=== PATIENT | female | born 1930 | race Caucasian/White ===

== ENCOUNTER 2016-11-21 11:15 | Inpatient (IN) | payer MEDICARE, OTHER ==
[~2016-11-21] VITALS: Ht 157.5 cm; Wt 63.6 kg
[~2016-11-21 11:15] MED LIST: ACET-2158 GTB; DOCU-144 PO; FLUD0.1T10 PO; LINA290C PO; PANT40TA3 PO; TEMA30CA6 PO; [UNRECOGNIZED DRUG - CODE] NASAL; [UNRECOGNIZED DRUG - CODE] PO
--- NOTE | 2016-11-21 12:24 | RADRPT ---
PROCEDURE: US bilateral lower extremity veins. CLINICAL INDICATION: Bilateral leg pain and swelling. History of inferior vena cava filter. TECHNIQUE: Multiple longitudinal and transverse images of the bilateral lower extremity veins were obtained with jimenez scale and color Doppler imaging. The common femoral vein, femoral vein, and popl iteal vein were evaluated. 2D grayscale measurements with compression sonography, color Doppler, and pulsed Doppler with augmentation. COMPARISON: No prior studies are available for comparison. FINDINGS: The bilateral common femoral, femoral and popliteal veins are normally compressible throughout. Col or flow demonstrates normal filling of the vessels. Normal waveforms are visualized and there is no rmal response to augmentation. IMPRESSION: 1. No evidence of deep vein thrombosis involving either lower extremity. RPTAT: QQ .Charbel Fowler MD, MD Date Time Electronically viewed and signed by .Charbel Fowler MD, on 11/21/2016 12:24 .R/
[2016-11-21 12:41] LABS: ADD SCAN DIFF NO
--- NOTE | 2016-11-21 12:45 | ERA ---
ER Documentation Chief Complaint Date/Time DATE: 11/21/16 TIME: 12:43 Chief Complaint BROUGHT IN VIA EMS DUE TO SHORTNESS OF BREATH FROM MD OFFICE HPI This is a very pleasant 86-year-old Armenian-speaking female with a known history of hypertension ulx-vifjdyy-hrjgzurcm diabetes mellitus that presents from her primary care physician's office after she was evaluated for shortness of breath. The patient has had a productive cough with whitish sputum for the past 7 days. She has not taken any antibiotics. She indicates that this shortness of breath is worse with exertion. She has had swelling of her bilateral lower extremities and mild calf tenderness. She has had a previous IVC filter placed prophylactically after the patient had a right hip replacement several years prior to arrival. She has no chest pain or pressure that radiates to the neck arm back or jaw. She has had a decrease in appetite and generalized myalgias but denies any abdominal pain hemoptysis or hematemesis. She has had no recent travel. 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 Medications Home Meds Reported Medications Calcitonin [place]* (Miacalcin*) 200 Units/Ml Soln, 1 SPRAY NASAL DAILY, VIAL 11/21/16 Temazepam* (Temazepam*) 15 Mg Capsule, 15 MG PO HS Y for INSOMNIA, CAP 11/21/16 Pantoprazole* (Pantoprazole*) 40 Mg Tablet.dr, 40 MG PO AC BREAKFAST, TAB 11/21/16 Ygcytx-Ywowscpd-Gtqoxsn* (Zenpep DR* 5,000) 5,000 L-17,000-27,000 Unit Capsule.dr, 1 CAP PO WITH MEALS, CAP 11/21/16 Hyoscyamine Sulfate* (Hyoscyamine Sulfate*) 0.125 Mg Tab.subl, 0.125 MG SL Q8 Y for PAIN, TAB 11/21/16 Fludrocortisone* (Fludrocortisone*) 0.1 Mg Tablet, 0.1 MG PO DAILY, TAB 11/21/16 Erythromycin* (Erythromycin* Ophthalmic) 1 Applic Oint, 1 APPLIC BOTH EYES BID, #1 TUB 11/21/16 Docusate Sodium* (Docusate Sodium*) 100 Mg Capsule, 100 MG PO BID Y for CONSTIPATION, #60 CAP 11/21/16 Diclofenac Sodium* (Voltaren* Gel) 1% -100 Gm Gel, 1 GM TOP BID Y for PAIN, #1 TUB 11/21/16 Cyclosporine (RESTASIS) 1 Each [place], 1 DROP BOTH EYES Q12, #1 BOX 11/21/16 Albuterol Sulfate* (Albuterol Sulfate* Neb) 0.083%-3 Ml Neb, 2.5 MG NEB Q8 Y for WHEEZING AND SOB, #30 VIAL 11/21/16 Acetaminophen* (Acetaminophen*) 650 Mg Tablet, 650 MG PO Q8 Y for PAIN AND OR ELEVATED TEMP, #30 TAB 11/21/16 Discontinued Reported Medications Calcitonin [place] (Miacalcin Nasal [place]) 1 [place], 1 SPRAY NASAL DAILY, SPRAY TO ALTERNATING NOSTRIL 01/12/15 Linaclotide (LINZESS) 290 Mcg Capsule, 290 MCG PO 01/12/15 Docusate Sodium* (Colace*) 100 Mg Capsule, 100 MG PO BID, CAP 01/12/15 Acetaminophen (TYLENOL 325 MG TAB) 325 Mg Tab, 325 MG GTB, TAB 01/12/15 Temazepam* (Restoril*) 30 Mg Capsule, 30 MG PO HS Y for INSOMNIA, CAP 01/12/15 Tjufzw-Qqrbydl-Eyjnbtin* (Pancrelipase* DR) 5,000 L-17,000-27,000 Unit Capsule.dr, 2 CAP PO WITH MEALS, CAP 01/12/15 Fludrocortisone* (Fludrocortisone*) 0.1 Mg Tablet, 0.1 MG PO DAILY, TAB 01/12/15 Pantoprazole* (Protonix*) 40 Mg Tablet.dr, 40 MG PO DAILY, TAB 01/12/15 Allergies Allergies: Coded Allergies: No Known Allergy (Verified , 01/12/15) PMhx/Soc History of Surgery: Yes (LAMI L4-L5, LT. TKR, RT. THR, THORACOTOMY R) Anesthesia Reaction: Yes Hx Neurological Disorder: No (USES WALKER DUE TO LOWER EXT WEAKNESS) Hx Respiratory Disorders: Yes Hx Cardiac Disorders: Yes (H/O DVT POST SURGERY;) Hx Psychiatric Problems: No Hx Miscellaneous Medical Probl: No Hx Alcohol Use: No Hx Substance Use: No Hx Tobacco Use: No Smoking Status: Never smoker Physical Exam Vitals Vital Signs Date Time Temp Pulse Resp B/P Pulse Ox O2 Delivery O2 Flow Rate FiO2 11/21/16 12:22 74 26 136/95 95 Nasal Cannula 2.0 11/21/16 12:02 Nasal Cannula 2.0 11/21/16 12:02 Nasal Cannula 2 11/21/16 11:27 98.5 90 18 140/84 95 Physical Exam Constitutional:Well-developed. Well-nourished. HEENT:Normocephalic. Atraumatic.Pupils were equal round reactive to light. Moist mucous membranes.No tonsillar exudates. Neck: No nuchal rigidity. No lymphadenopathy. No posterior cervical spine tenderness or step-offs. Respiratory: Tachypneic. Rhonchi heard bilaterally. Productive cough. Not using accessory muscles of respiration. Cardiovascular: Regular rate regular rhythm. Systolic murmurs. No rubs were appreciated.S1, S2 normal. Distal pulses are palpable 2+ bilaterally. GI: Abdomen was soft. Nontender. Non Distended. No pulsatile abdominal masses or bruits. No rebound. No guarding. Bowel sounds were present and normal. Muscle skeletal: Full range of motion of both the upper and lower extremities bilaterally.Normal muscle tone.No assymetrical calf tenderness or swelling. Skin: No petechia, no purpura. No lesions on the palms or the soles of the feet. No maculopapular rash. 1+ pitting edema the bilateral lower extremities NEURO: Patient was alert, awake, orientated x3.No facial droop. Gait observed and normal with no ataxia.Speech had regular rate and rhythm. No focal neurological deficits. Result Diagram: 11/21/16 1220 11/21/16 1220 Results 24 hrs Laboratory Tests Test 11/21/16 12:20 11/21/16 13:20 White Blood Count 5.110^3/ul Red Blood Count 3.7110^6/ul Hemoglobin 12.1g/dl Hematocrit 38.5% Mean Corpuscular Volume 103.8fl Mean Corpuscular Hemoglobin 32.6pg Mean Corpuscular Hemoglobin Concent 31.4g/dl Red Cell Distribution Width 12.8% Platelet Count 04175^3/UL Mean Platelet Volume 9.8fl Neutrophils % 71.2% Lymphocytes % 13.9% Monocytes % 12.5% Eosinophils % 1.6% Basophils % 0.6% Nucleated Red Blood Cells % 0.0/100WBC Neutrophils # 3.610^3/ul Lymphocytes # 0.710^3/ul Monocytes # 0.610^3/ul Eosinophils # 0.110^3/ul Basophils # 0.010^3/ul Nucleated Red Blood Cells # 0.010^3/ul Prothrombin Time 13.7Sec Prothrombin Time Ratio 1.1 INR International Normalized Ratio 1.05 Activated Partial Thromboplast Time 29.1Sec Sodium Level 144mmol/L Potassium Level 4.6mmol/L Chloride Level 108mmol/L Carbon Dioxide Level 30mmol/L Anion Gap 11 Blood Urea Nitrogen 20mg/dl Creatinine 0.73mg/dl Glucose Level 92mg/dl Calcium Level 10.5mg/dl Total Bilirubin 0.1mg/dl Direct Bilirubin 0.00mg/dl Indirect Bilirubin 0.1mg/dl Aspartate Amino Transf (AST/SGOT) 63IU/L Alanine Aminotransferase (ALT/SGPT) 68IU/L Alkaline Phosphatase 101IU/L Troponin I < 0.012ng/ml B-Type Natriuretic Peptide 1210PG/ML Total Protein 6.6g/dl Albumin 3.7g/dl Globulin 2.90g/dl Albumin/Globulin Ratio 1.27 Amylase Level 124U/L Lipase 169U/L Urine Color YELLOW Urine Clarity CLEAR Urine pH 5.5 Urine Specific [place] 1.025 Urine Ketones NEGATIVE Urine Nitrite NEGATIVE Urine Bilirubin NEGATIVE Urine Urobilinogen 0.2 E.U./dL Urine Leukocyte Esterase TRACE Urine Microscopic RBC NONE SEEN/HPF Urine Microscopic WBC 0-2/HPF Urine Squamous Epithelial Cells FEW Urine Hemoglobin NEGATIVE Urine Glucose NEGATIVE% Urine Total Protein NEGATIVE Current Medications Medications (Trade) Dose Ordered Sig/Paty Route PRN Reason Start Time Stop Time Status Last Admin Dose Admin IV Flush 10 ml 10 ml STK-MED ONCE .ROUTE 11/21/16 13:19 11/21/16 13:20 DC 11/21/16 13:40 Sodium Chloride (NS) 100 ml @ ud STK-MED ONCE .ROUTE 11/21/16 13:19 11/21/16 13:20 DC 11/21/16 13:41 Iodixanol (Visipaque Locm) 100 ml STK-MED ONCE .ROUTE 11/21/16 13:19 11/21/16 13:20 DC 11/21/16 13:41 Enoxaparin Sodium (Lovenox) 60 mg ONCE ONCE SC 11/21/16 14:30 11/21/16 14:31 DC Ondansetron HCl (Zofran Inj) 4 mg ER BRIDGE PRN IV NAUSEA AND/OR VOMITING 11/21/16 14:30 11/22/16 14:29 Acetaminophen (Tylenol Tab) 650 mg ER BRIDGE PRN PO MILD PAIN/FEVER 11/21/16 14:30 11/22/16 14:29 Procedures/MDM The patient presented to the emergency department with shortness of breath. My differential diagnosis included but was not limited to upper airway obstruction , CHF, pulmonary embolism, cardiac ischemia, pneumonia, pneumothorax, anemia, drug overdose, pulmonary edema, COPD or asthma. 12 Lead EKG tracing ordered and reviewed by myself showed: Normal sinus rhythm of 87 bpm and no arrhythmia. OK interval normal. QRS duration normal. No ST segment elevation No ST segment depression. No changes consistent with acute ischemia. As obtained a CT scan of the patient's chest due to her shortness of breath. The patient had a small pulmonary emboli in the branch of the pulmonary artery to the right lower lobe. The patient had an aortic aneurysm of the ascending or aorta measuring 4 cm and of the thoracic descending aorta measuring 3.1 cm, not requiring surgical intervention at this time. The patient had a small area of loculated fluid on the right and therefore I obtained blood cultures. Venous duplex ultrasound of the lower extremities were obtained and normal. The patient was given Lovenox for the pulmonary emboli I spoke with the patient's primary care physician, Dr. Mederos, who will be admitting the patient in serious condition with anticipated stay of greater than 2 midnights. She will consult cardiology and obtain an echocardiogram for further evaluation. The patient also had a dilatation of the main pulmonary artery measuring 3.9 cm likely indicating pulmonary artery hypertension. Critical Care: Time: 60 minutes Treatments/Evaluations: Close monitoring and treatment of unstable vital signs, cardiorespiratory, and neurologic status, while maintaining tight balance of fluid, respiratory, and cardiac interventions. Time does not include performing any of the above billable procedures. Departure Diagnosis: Primary Impression: Pulmonary embolism Qualified Code: I26.99 - Other acute pulmonary embolism without acute cor pulmonale Additional Impression: Pulmonary hypertension Condition: Serious JAYY MONTENEGRO Nov 21, 2016 12:45
[2016-11-21 12:48] LABS: BASOPHILS % 0.6 % (0.0-2.0); EOSINOPHILS # 0.1 10^3/ul (0.0-0.5); EOSINOPHILS % 1.6 % (0.0-7.0); HEMATOCRIT 38.5 % (37.0-47.0); HEMOGLOBIN 12.1 g/dl (12.0-16.0); LYMPHOCYTES # 0.7 10^3/ul (0.8-2.9); LYMPHOCYTES % 13.9 % (15.0-51.0); MEAN CORPUSCULAR HEMOGLOBIN 32.6 pg (29.0-33.0); MEAN CORPUSCULAR HGB CONC 31.4 g/dl (32.0-37.0); MEAN CORPUSCULAR VOLUME 103.8 fl (82.0-101.0); MEAN PLATELET VOLUME 9.8 fl (7.4-10.4); MONOCYTE # 0.6 10^3/ul (0.3-0.9); MONOCYTES % 12.5 % (0.0-11.0); NEUTROPHIL # 3.6 10^3/ul (1.6-7.5); NEUTROPHILS % 71.2 % (39.0-77.0); PLATELET COUNT 188 10^3/UL (140-415); RED BLOOD COUNT 3.71 10^6/ul (4.20-5.40); RED CELL DISTRIBUTION WIDTH 12.8 % (11.5-14.5); WHITE BLOOD COUNT 5.1 10^3/ul (4.8-10.8)
[2016-11-21 13:02] LABS: INR 1.05; PARTIAL THROMBOPLASTIN TIME 29.1 Sec (25.0-35.0); PROTIME 13.7 Sec (12.2-14.2); PT RATIO 1.1
[2016-11-21] MEDS ORDERED: ALBU2.5V3 NEB (13:08)
[2016-11-21] MEDS ORDERED: ACET-2047 PO (13:08)
[2016-11-21 13:09] LABS: ALANINE AMINOTRANSFERASE 68 IU/L (13-69); ALBUMIN 3.7 g/dl (3.3-4.9); ALBUMIN/GLOBULIN RATIO 1.27; ALKALINE PHOSPHATASE 101 IU/L (42-121); AMYLASE 124 U/L (11-123); ANION GAP 11 (8-16); ASPARTATE AMINO TRANSFERASE 63 IU/L (15-46); BILIRUBIN,INDIRECT 0.1 mg/dl (0-1.1); BILIRUBIN,TOTAL 0.1 mg/dl (0.2-1.3); BLOOD UREA NITROGEN 20 mg/dl (7-20); CALCIUM 10.5 mg/dl (8.4-10.2); CARBON DIOXIDE 30 mmol/L (21-31); CHLORIDE 108 mmol/L (97-110); CREATININE 0.73 mg/dl (0.44-1.00); GLUCOSE 92 mg/dl (70-220); POTASSIUM 4.6 mmol/L (3.5-5.1); SODIUM 144 mmol/L (135-144); TOTAL PROTEIN 6.6 g/dl (6.1-8.1)
[2016-11-21] MEDS ORDERED: CYCL1DRO BOTH EYES (13:09)
[2016-11-21] MEDS ORDERED: DOCU-159 PO (13:10)
[2016-11-21] MEDS ORDERED: DICL100G37 TOP (13:10)
[2016-11-21] MEDS ORDERED: FLUD0.1T10 PO (13:11)
[2016-11-21] MEDS ORDERED: ERYTOPOI BOTH EYES (13:11)
[2016-11-21] MEDS ORDERED: HYOS0.1212 SL (13:12)
[2016-11-21] MEDS ORDERED: PANT40TA4 PO (13:12)
[2016-11-21] MEDS ORDERED: LIPA1CAP15 PO (13:12)
[2016-11-21] MEDS ORDERED: [UNRECOGNIZED DRUG - CODE] NASAL (13:13)
[2016-11-21] MEDS ORDERED: TEMA15CA PO (13:13)
[2016-11-21] MEDS ORDERED: SOD CHLORIDE 0.9% 100 ML ONE (13:19)
[2016-11-21] MEDS ORDERED: IODIXANOL LOCM 100 ML BTL ONE (13:19)
[2016-11-21 13:21] LABS: B-TYPE NATRIURETIC PEPTIDE 1210 PG/ML (0-450); TROPONIN-I < 0.012 ng/ml (0.00-0.12)
[2016-11-21 13:34] LABS: ADD UMIC YES; URINE BILIRUBIN (Dip) NEGATIVE (NEGATIVE); URINE BLOOD (Dip) NEGATIVE (NEGATIVE); URINE COLOR YELLOW (YELLOW); URINE GLUCOSE (Dip) NEGATIVE (NEGATIVE); URINE KETONES (Dip) NEGATIVE (NEGATIVE); URINE LEUKOCYTE ESTERASE (Dip) TRACE (NEGATIVE); URINE NITRITE (Dip) NEGATIVE (NEGATIVE); URINE TOTAL PROTEIN (Dip) NEGATIVE (NEGATIVE); URINE UROBILINOGEN (Dip) 0.2 E.U./dL (0.1-1.0)
[2016-11-21 13:46] LABS: SQUAMOUS EPITHELIAL CELL,UR FEW; URINE RBCS NONE SEEN /HPF (0)
--- NOTE | 2016-11-21 14:03 | RADRPT ---
PROCEDURE: CTA Chest with contrast and with 3-D reconstructions CLINICAL INDICATION: Shortness of breath TECHNIQUE: The study was performed utilizing multidetector CT scanner. Direct spiral axial section s were obtained from the thoracic inlet to the upper abdomen with the use of intravenous contrast ma terial. Sagittal, coronal and 3-D reformations were obtained. The images were reviewed on a PACS wor kstation. DLP 332.34 mGycm CTDIvol of 2.82, 19.72, 8.15 mGy COMPARISON: CT chest/abdomen/pelvis from 03/11/2008 FINDINGS: There are filling defects and branches of the pulmonary artery to the right lower lobe on series 3, images 138-144. There is dilatation of the main pulmonary artery which measures 3.9 cm in diameter and dilatation of the main right pulmonary artery to 3.5 cm, indicating an element of pulmonary artery hypertension. There is mild aneurysmal dilatation of the ascending aorta which measures 4.0 cm in diameter at the level of the right pulmonary artery. There is mild aneurysmal dilatation of the distal aortic arch w hich measures 3.3 cm in diameter. There is mild aneurysmal dilatation of the descending thoracic aor ta which measures 3.1 cm at the level of the left pulmonary artery and 2.6 cm just above the diaphra gmatic hiatus. There are no definite pulmonary consolidations. There is possibly loculated fluid within the major and minor fissure on the right. Serpiginous and dense material is noted at the right lung base whic h may be postsurgical in nature. There is no pneumothorax. Heart size is within normal limits. There is no pericardial fluid. There are no enlarged axillary or mediastinal lymph nodes. The visualized portions of the upper abdomen demonstrate an infrarenal IVC filter. There is decrease d osseous mineralization as well as mild thoracolumbar scoliosis. Soft tissue structures are unremar kable. IMPRESSION: Small emboli in branches of the pulmonary artery to the right lower lobe. An infrarenal IVC filter i s noted. Marked dilatation of the main pulmonary artery and right pulmonary artery to 3.9 cm and 3.5 cm in di ameter, respectively. Findings suggest an element of pulmonary artery hypertension. Possibly loculated right pleural fluid. Likely postsurgical changes are identified at the right lung base, as above. Correlation with surgi juan history is recommended. These findings were discussed with Dr. Gwendolyn Garces over the phone on 11/21/2016 at 1400 hours . RPTAT: EE Lencho Rizo, Physician Date Time Electronically viewed and signed by Lencho Rizo, Physician on 11/21/2016 14:03 /
[2016-11-21] MEDS ORDERED: ONDANSETRON 4 MG INJ IV PRN (14:30)
[2016-11-21] MEDS ORDERED: ACETAMINOPHEN 325 MG TAB PO PRN ×2 (14:30→20:00)
[2016-11-21] MEDS ORDERED: ENOXAPARIN 60 MG/0.6 ML SYG SC ONE (14:30)
[2016-11-21] MEDS ORDERED: FUROSEMIDE 40 MG INJ ONE (16:55)
[2016-11-21] MEDS: FUROSEMIDE 20 MG INJ IV SCH (17:07)
--- NOTE | 2016-11-21 17:07 | CONS ---
Date/Time of Note Date/Time of Note DATE: 11/21/16 TIME: 16:19 Assessment/Plan Assessment/Plan Chief Complaint/Hosp Course SOB: In my opinion her symptoms are unlikely from the PE as they are small and may even be chronic. 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 She has evidence of left/right heart failure by exam and a significant MR murmur. I would guess that she may have severe MR causing left heart failure, pulm edema, secondary pulm HTN ( though may also be from COPD and prior PEs), and resulting right heart failure. She needs diuresis and an echo. The daughter states that the pt is very sensitive to meds and would like her on low dose lasix for now. Acute heart failure: as above suspect valvular. Will diurese Pulmonary emboli: acute vs chronic. Small by CT read COPD H/o DVT/IVC filter -lasix 20mg IV BID -check echo -further recs based on echo -anticoagulation per primary team Problems: Consultation Date/Type/Reason Admit Date/Time Date of Consultation: Nov 21, 2016 Type of Consultation: Cardiology Reason for Consultation SOB Referring Provider: MARLIN YEUNG MD Hx of Present Illness 86 yo F with a h/o COPD, DVT in the setting of hip fracture 10 yrs ago s/p IVC filter, who presented with SOB. The history is obtained from the nephew in person and daughter by phone who are both physicians. The patient has been having several weeks of SOB, orthopnea, edema, cough. No chest pain. She was found to have small pulmonary emboli in her RLL. per HPI Past Medical History per HPI Social History Smoking Status: Never smoker Exam/Review of Systems Vital Signs Vitals Vital Signs Date Time Temp Pulse Resp B/P Pulse Ox O2 Delivery O2 Flow Rate FiO2 11/21/16 15:46 80 30 127/68 98 Nasal Cannula 4.0 11/21/16 11:27 98.5 Exam Constitutional: alert, oriented Psych: no complaints Head: atraumatic, normocephalic ENMT: nl external ears & nose Neck: jvd (12cm) Respiratory: crackles/rales, diminished breath sounds, No clear to auscultation Cardiovascular: edema (1+), regular rate and rhythm, systolic murmur (3/9 holosystolic murmur best heard over apex and radiating to her axilla) Gastrointestinal: non-tender, soft Musculoskeletal: nl extremities to inspection Neurological: nl mental status, nl speech Skin: No rash or lesions Additional Comments EKG: sinus, PAC/PVCs, no significant ST changes Results Result Diagram: 11/21/16 1220 11/21/16 1220 Results 24 hrs Laboratory Tests Test 11/21/16 12:20 11/21/16 13:20 White Blood Count 5.1 Red Blood Count 3.71 L Hemoglobin 12.1 Hematocrit 38.5 Mean Corpuscular Volume 103.8 H Mean Corpuscular Hemoglobin 32.6 Mean Corpuscular Hemoglobin Concent 31.4 L Red Cell Distribution Width 12.8 Platelet Count 188 Mean Platelet Volume 9.8 Neutrophils % 71.2 Lymphocytes % 13.9 L Monocytes % 12.5 H Eosinophils % 1.6 Basophils % 0.6 Nucleated Red Blood Cells % 0.0 Neutrophils # 3.6 Lymphocytes # 0.7 L Monocytes # 0.6 Eosinophils # 0.1 Basophils # 0.0 Nucleated Red Blood Cells # 0.0 Prothrombin Time 13.7 Prothrombin Time Ratio 1.1 INR International Normalized Ratio 1.05 Activated Partial Thromboplast Time 29.1 Sodium Level 144 Potassium Level 4.6 Chloride Level 108 Carbon Dioxide Level 30 Anion Gap 11 Blood Urea Nitrogen 20 Creatinine 0.73 Glucose Level 92 Calcium Level 10.5 H Total Bilirubin 0.1 L Direct Bilirubin 0.00 Indirect Bilirubin 0.1 Aspartate Amino Transf (AST/SGOT) 63 H Alanine Aminotransferase (ALT/SGPT) 68 Alkaline Phosphatase 101 Troponin I < 0.012 B-Type Natriuretic Peptide 1210 H Total Protein 6.6 Albumin 3.7 Globulin 2.90 Albumin/Globulin Ratio 1.27 Amylase Level 124 H Lipase 169 Urine Color YELLOW Urine Clarity CLEAR Urine pH 5.5 Urine Specific [place] 1.025 Urine Ketones NEGATIVE Urine Nitrite NEGATIVE Urine Bilirubin NEGATIVE Urine Urobilinogen 0.2 E.U./dL Urine Leukocyte Esterase TRACE H Urine Microscopic RBC NONE SEEN Urine Microscopic WBC 0-2 Urine Squamous Epithelial Cells FEW Urine Hemoglobin NEGATIVE Urine Glucose NEGATIVE Urine Total Protein NEGATIVE GREG LARSEN Nov 21, 2016 16:29
[2016-11-21] MEDS ORDERED: FUROSEMIDE 40 MG INJ IV SCH (18:00)
[2016-11-21 18:57] VITALS: PULSE 89
[2016-11-21 20:00] VITALS: PULSE 85
[2016-11-21] MEDS ORDERED: ZOLPIDEM 5 MG TAB PO PRN (20:00)
[2016-11-21] MEDS ORDERED: DICLOFENAC SODIUM 1% GEL 100 GM TUBE TP PRN (20:00)
[2016-11-21] MEDS ORDERED: ALBUTEROL 0.083% (NEB) 2.5 MG/3 ML AMP NEB PRN (20:00)
[2016-11-21] MEDS ORDERED: DOCUSATE SODIUM 100 MG CAP PO PRN (20:00)
[2016-11-21] MEDS ORDERED: HYOSCYAMINE 0.125 MG SUBL TAB SL PRN (20:00)
[2016-11-21 20:37] VITALS: BP 145/80; RESP 16
[2016-11-21 20:54] VITALS: Ht 157.5 cm; Wt 63.6 kg
[2016-11-21] MEDS ORDERED: PANCRELIPASE XX SCH (22:30)
[2016-11-21] MEDS: ERYTHROMYCIN 1 GM OPH OINT BOTH EYES SCH (22:30)
[2016-11-21] MEDS: CYCLOSPORINE 0.05% OPH DROPERETTE BOTH EYES SCH (22:30)
[2016-11-22] VITALS (10 sets, daily range): BP systolic 108–152; BP diastolic 63–95; PULSE 75–91; RESP 16–18
[2016-11-22] MEDS: FUROSEMIDE 20 MG INJ IV SCH ×3 (05:12→17:11)
[2016-11-22] MEDS ORDERED: LIPASE PROTEASE AMYLASE PO SCH (08:00)
[2016-11-22 08:08] LABS: ADD SCAN DIFF NO
[2016-11-22 08:13] LABS: BASOPHILS % 0.6 % (0.0-2.0); EOSINOPHILS % 0.6 % (0.0-7.0); HEMATOCRIT 41.1 % (37.0-47.0); HEMOGLOBIN 13.1 g/dl (12.0-16.0); LYMPHOCYTES # 0.6 10^3/ul (0.8-2.9); LYMPHOCYTES % 12.5 % (15.0-51.0); MEAN CORPUSCULAR HEMOGLOBIN 32.4 pg (29.0-33.0); MEAN CORPUSCULAR HGB CONC 31.9 g/dl (32.0-37.0); MEAN CORPUSCULAR VOLUME 101.7 fl (82.0-101.0); MEAN PLATELET VOLUME 9.8 fl (7.4-10.4); MONOCYTE # 0.5 10^3/ul (0.3-0.9); MONOCYTES % 10.1 % (0.0-11.0); NEUTROPHIL # 3.8 10^3/ul (1.6-7.5); PLATELET COUNT 198 10^3/UL (140-415); RED BLOOD COUNT 4.04 10^6/ul (4.20-5.40); RED CELL DISTRIBUTION WIDTH 12.7 % (11.5-14.5); WHITE BLOOD COUNT 5.1 10^3/ul (4.8-10.8)
[2016-11-22] MEDS: PANTOPRAZOLE (EC) 40 MG TAB PO SCH (08:16)
[2016-11-22] MEDS: FLUDROCORTISONE 0.1 MG TAB PO SCH (08:17)
[2016-11-22] MEDS: CYCLOSPORINE 0.05% OPH DROPERETTE BOTH EYES SCH ×2 (08:17→22:23)
[2016-11-22] MEDS: ERYTHROMYCIN 1 GM OPH OINT BOTH EYES SCH ×2 (08:17→21:02)
[2016-11-22 08:41] LABS: ALBUMIN 3.9 g/dl (3.3-4.9); CHLORIDE 103 mmol/L (97-110); POTASSIUM 3.9 mmol/L (3.5-5.1); SODIUM 147 mmol/L (135-144)
[2016-11-22 08:44] LABS: ALANINE AMINOTRANSFERASE 65 IU/L (13-69); ALBUMIN/GLOBULIN RATIO 1.18; ALKALINE PHOSPHATASE 94 IU/L (42-121); ANION GAP 16 (8-16); ASPARTATE AMINO TRANSFERASE 56 IU/L (15-46); BILIRUBIN,INDIRECT 0.4 mg/dl (0-1.1); BILIRUBIN,TOTAL 0.4 mg/dl (0.2-1.3); BLOOD UREA NITROGEN 18 mg/dl (7-20); CALCIUM 10.3 mg/dl (8.4-10.2); CARBON DIOXIDE 32 mmol/L (21-31); CREATININE 0.72 mg/dl (0.44-1.00); GLUCOSE 112 mg/dl (70-220); TOTAL PROTEIN 7.2 g/dl (6.1-8.1)
[2016-11-22 08:46] LABS: CK-MB 1.41 ng/ml (0.0-2.4)
[2016-11-22 08:49] LABS: TROPONIN-I < 0.012 ng/ml (0.00-0.12)
--- NOTE | 2016-11-22 09:22 | CONS ---
Date/Time of Note Date/Time of Note DATE: 11/22/16 TIME: 09:19 Assessment/Plan Assessment/Plan Chief Complaint/Hosp Course SOB: In my opinion her symptoms are unlikely from the PE as they are small and may even be chronic. 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 She has evidence of left/right heart failure by exam and a significant MR murmur. I would guess that she may have severe MR causing left heart failure, pulm edema, secondary pulm HTN ( though may also be from COPD and prior PEs), and resulting right heart failure. She needs diuresis and an echo. The daughter states that the pt is very sensitive to meds and would like her on low dose lasix for now. She seems to be responsive as exam is better today SVT: appears to be atrial tachycardia on monitor with some aberrant conduction. Some irregularity though but no clear e/o afib Acute heart failure: as above suspect valvular. better with diuresis Pulmonary emboli: acute vs chronic. Small by CT read COPD H/o DVT/IVC filter -lasix 20mg IV BID -add metoprolol 12.5mg BID for SVT control, titrate as tolerated -check echo -further recs based on echo -anticoagulation per primary team Problems: Consultation Date/Type/Reason Admit Date/Time Nov 21, 2016 at 14:30 Initial Consult Date 11/21/16 Type of Consultation: Cardiology Referring Provider: MARLIN YEUNG MD 24 HR Interval Summary Free Text/Dictation Overnight with frequent short runs of SVT. Breathing slightly better. Exam/Review of Systems Vital Signs Vitals Vital Signs Date Time Temp Pulse Resp B/P Pulse Ox O2 Delivery O2 Flow Rate FiO2 11/22/16 08:40 Nasal Cannula 3.0 11/22/16 08:13 91 11/22/16 07:25 97.6 18 152/95 92 Exam Constitutional: alert Head: atraumatic, normocephalic Neck: jvd (9cm) Respiratory: crackles/rales, No clear to auscultation Cardiovascular: systolic murmur (3/6 HSM), No edema, No regular rate and rhythm Gastrointestinal: non-tender, soft Results Result Diagram: 11/22/16 0745 11/22/16 0745 Results 24 hrs Laboratory Tests Test 11/21/16 12:20 11/21/16 13:20 11/22/16 07:45 White Blood Count 5.1 5.1 Red Blood Count 3.71 L 4.04 L Hemoglobin 12.1 13.1 Hematocrit 38.5 41.1 Mean Corpuscular Volume 103.8 H 101.7 H Mean Corpuscular Hemoglobin 32.6 32.4 Mean Corpuscular Hemoglobin Concent 31.4 L 31.9 L Red Cell Distribution Width 12.8 12.7 Platelet Count 188 198 Mean Platelet Volume 9.8 9.8 Neutrophils % 71.2 76.0 Lymphocytes % 13.9 L 12.5 L Monocytes % 12.5 H 10.1 Eosinophils % 1.6 0.6 Basophils % 0.6 0.6 Nucleated Red Blood Cells % 0.0 0.0 Neutrophils # 3.6 3.8 Lymphocytes # 0.7 L 0.6 L Monocytes # 0.6 0.5 Eosinophils # 0.1 0.0 Basophils # 0.0 0.0 Nucleated Red Blood Cells # 0.0 0.0 Prothrombin Time 13.7 Prothrombin Time Ratio 1.1 INR International Normalized Ratio 1.05 Activated Partial Thromboplast Time 29.1 Sodium Level 144 147 H Potassium Level 4.6 3.9 Chloride Level 108 103 Carbon Dioxide Level 30 32 H Anion Gap 11 16 Blood Urea Nitrogen 20 18 Creatinine 0.73 0.72 Glucose Level 92 112 Calcium Level 10.5 H 10.3 H Total Bilirubin 0.1 L 0.4 Direct Bilirubin 0.00 0.00 Indirect Bilirubin 0.1 0.4 Aspartate Amino Transf (AST/SGOT) 63 H 56 H Alanine Aminotransferase (ALT/SGPT) 68 65 Alkaline Phosphatase 101 94 Troponin I < 0.012 < 0.012 B-Type Natriuretic Peptide 1210 H Total Protein 6.6 7.2 Albumin 3.7 3.9 Globulin 2.90 3.30 H Albumin/Globulin Ratio 1.27 1.18 Amylase Level 124 H Lipase 169 Urine Color YELLOW Urine Clarity CLEAR Urine pH 5.5 Urine Specific [place] 1.025 Urine Ketones NEGATIVE Urine Nitrite NEGATIVE Urine Bilirubin NEGATIVE Urine Urobilinogen 0.2 E.U./dL Urine Leukocyte Esterase TRACE H Urine Microscopic RBC NONE SEEN Urine Microscopic WBC 0-2 Urine Squamous Epithelial Cells FEW Urine Hemoglobin NEGATIVE Urine Glucose NEGATIVE Urine Total Protein NEGATIVE Creatinine Kinase MB (Mass) 1.41 Medications Medications Current Medications Acetaminophen (Tylenol Tab) 650 mg Q8H PRN PO PAIN AND OR ELEVATED TEMP; Start 11/21/16 at 20:00 Cyclosporine (Restasis) 1 drop Q12 BOTH EYES Last administered on 11/22/16 08: 17; Admin Dose 1 DROP; Start 11/21/16 at 21:00 Diclofenac Sodium (Voltaren 1% Gel) 1 gm BID PRN TP PAIN; Start 11/21/16 at 20: 00 Docusate Sodium (Colace) 100 mg BID PRN PO CONSTIPATION; Start 11/21/16 at 20: 00 Erythromycin (Erythromycin Oph Oint) 1 applic BID BOTH EYES Last administered on 11/22/16 08:17; Admin Dose 1 APPLIC; Start 11/21/16 at 21:00 Fludrocortisone Acetate (Florinef) 0.1 mg DAILY PO Last administered on 08:17; Admin Dose 0.1 MG; Start 11/22/16 at 09:00 Hyoscyamine (Levsin (Sl)) 0.125 mg Q8H PRN SL PAIN; Start 11/21/16 at 20:00 Zolpidem Tartrate (Ambien) 5 mg HS PRN PO INSOMNIA Last administered on 22:44; Admin Dose 5 MG; Start 11/21/16 at 20:00 GREG LARSEN Nov 22, 2016 09:22
[2016-11-22] MEDS: METOPROLOL 25 MG TAB PO SCH ×2 (09:47→21:01)
--- NOTE | 2016-11-22 13:21 | RADRPT ---
Echocardiogram Report Patient Name: TICO GALINDO Gender: Female Date: 1930 Study Date: 22-Nov-2016 Automatic Mounter: Leah Dao [facility] Location: [id number] Ref. Physician: GREG JOSEPH Quality: Good Procedures: Transthoracic echocardiogram with complete 2D, M-Mode, and doppler examination. Indications: Congestive Heart Failure. 2D/M Mode Doppler Measurement Value Normal Ranges Measurement Value Normal Ranges LVIDd 2D 4.9 3.5 - 5.6 cm AV Peak Stephon 1.3 m/sec LVIDs 2D 1.9 2.1 - 4.1 cm AV Peak PG 7.0 mmHg LVPWd 2D 1.0 0.6 - 1.1 cm AI Peak PG 53.9 mmHg IVSd 2D 0.9 0.6 - 1.1 cm AI Peak Stephon 3.7 m/sec AoR Diam 2D 2.7 2.0 - 3.7 cm AI PHT 247.0 msec EDV 2D 115.4 cm3 LVOT Peak Stephon 1.0 m/sec ESV 2D 6.5 cm3 LVOT Peak PG 3.8 mmHg LA Dimen 2D 4.1 2.3 - 4.0 cm MV E Peak Stephon 0.5 m/sec MV A Peak Stephon 0.6 m/sec MV E/A 0.8 MV Decel Time 158 msec MV Decel [place] 3 MV E/A 0.8 TR Peak Stephon 3.0 m/sec TR Peak PG 35.6 mmHg RVSP 44.0 mmHg Findings Left Ventricle: Normal left ventricular cavity size. Mild concentric left ventricular hypertrophy. Ejection fraction is visually estimated at 60 %. Right Ventricle: Normal right ventricular size. Normal right ventricular systolic function. Left Atrium: There is severe enlargement of left atrium. Right Atrium: There is severe enlargement of right atrium. Mitral Valve: Mitral valve leaflets appear mildly thickened. Mild mitral annular calcification. At least moderate eccentric anteriorly directed mitral regurgitation which is likely underestimated due to the eccentricity and poor visualization. Aortic Valve: No hemodynamically significant aortic stenosis by doppler. Aortic cusps appear mildly calcified. Moderate-severe aortic regurgitation. PHT 250. Tricuspid Valve: Normal appearance of the tricuspid valve. Estimated peak PA systolic pressure 51 mmHg. There is mild to moderate tricuspid regurgitation. Pulmonic Valve: Normal pulmonic valve appearance. There is trace pulmonic regurgitation. Pericardium: Small pericardial effusion. Aorta: Normal aortic root. IVC: Dilated inferior vena cava with poor inspiratory collapse consistent with elevated right atrial pressures. Conclusions 1.Normal left ventricular cavity size. Mild concentric left ventricular hypertrophy. Ejection fraction is visually estimated at 60 %. 2.At least moderate eccentric anteriorly directed mitral regurgitation which is likely underestimated due to the eccentricity and poor visualization. 3.Moderate-severe aortic regurgitation. PHT 250. 4.Mild-moderate tricuspid regurgitation. 5.Severe biatrial enlargement. 6.Estimated peak PA systolic pressure 51 mmHg based on RA pressure of 15 mmHg. Electronically Signed By: Greg Joseph 22-Nov-2016 13:21:18 -0700 Patient Name: TICO GALINDO Study Date: 22-Nov-2016 [id number]
[2016-11-22] MEDS ORDERED: CEFTRIAXONE 500 MG in SOD CHLORIDE 0.9% 50 ML IVPB ONE (21:30)
[2016-11-23] VITALS (11 sets, daily range): BP systolic 91–130; BP diastolic 52–85; PULSE 60–96; RESP 18–24
[2016-11-23] MEDS: FUROSEMIDE 20 MG INJ IV SCH (05:31)
[2016-11-23] MEDS: PANTOPRAZOLE (EC) 40 MG TAB PO SCH (08:17)
[2016-11-23] MEDS: ERYTHROMYCIN 1 GM OPH OINT BOTH EYES SCH ×2 (08:18→22:09)
[2016-11-23] MEDS: FLUDROCORTISONE 0.1 MG TAB PO SCH (08:18)
[2016-11-23] MEDS: CYCLOSPORINE 0.05% OPH DROPERETTE BOTH EYES SCH ×2 (08:18→22:10)
[2016-11-23] MEDS: METOPROLOL 25 MG TAB PO SCH ×2 (08:19→22:20)
[2016-11-23] MEDS ORDERED: CEFTRIAXONE 500 MG in SOD CHLORIDE 0.9% 50 ML IVPB ONE (09:00)
--- NOTE | 2016-11-23 11:46 | CONS ---
Date/Time of Note Date/Time of Note DATE: 11/23/16 TIME: 11:37 Assessment/Plan Assessment/Plan Chief Complaint/Hosp Course SOB: In my opinion her symptoms are unlikely from the PE as they are small and may even be chronic. 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 By echo she has at least moderate eccentric MR but the valve was not well visualized and is likely underestimated. She also has mod-severe AR. SVT: appears to be atrial tachycardia on monitor with some aberrant conduction. Some irregularity though but no clear e/o afib. Improved with MTP Acute decompensated diastolic/valvular heart failure: significant MR/AR. EF preserved. Close to euvolemic after diuresis Positive blood cultures: 1/2 shows Staph species, the second is GPC in chains which is usually Strep which is confusing. Will await final results and sensitivities. Has been on ceftriaxone. If cultures are positive despite antibiotics (assuming sensitivity of Ceftriaxone), may need LUCRECIA to evaluate for endocarditis as no other source has been identified Pulmonary emboli: acute vs chronic. Small by CT COPD H/o DVT/IVC filter -stat labs as none today -repeat cultures -check ESR/CRP -change to lasix 20mg Po daily starting tomorrow -metoprolol 12.5mg BID for SVT control -anticoagulation per primary team -antibiotics per primary team, consider ID eval -will need repeat TTE (possibly outpt if discharged) and possibly LUCRECIA depending on blood cultures and adequacy of TTE Problems: Consultation Date/Type/Reason Admit Date/Time Nov 21, 2016 at 14:30 Initial Consult Date 11/21/16 Type of Consultation: Cardiology Referring Provider: MARLIN YEUNG MD 24 HR Interval Summary Free Text/Dictation Slept better overnight but drowsy today. Per nephew, SOB is better. Has been having leg cramps Exam/Review of Systems Vital Signs Vitals Vital Signs Date Time Temp Pulse Resp B/P Pulse Ox O2 Delivery O2 Flow Rate FiO2 11/23/16 08:35 69 11/23/16 08:15 Nasal Cannula 3.0 11/23/16 07:53 97.8 24 118/66 91 Intake and Output 11/22/16 11/22/16 11/23/16 15:00 23:00 07:00 Intake Total 650 ml Balance 650 ml Exam Constitutional: No alert (drowsy) Psych: no complaints Head: normocephalic Neck: jvd (7cm) Respiratory: crackles/rales (mild), No clear to auscultation Cardiovascular: regular rate and rhythm, systolic murmur (3/6 HSM), No edema Gastrointestinal: non-tender, soft Results Result Diagram: 11/22/16 0745 11/22/16 0745 Medications Medications Current Medications Acetaminophen (Tylenol Tab) 650 mg Q8H PRN PO PAIN AND OR ELEVATED TEMP Last administered on 11/22/16 11:05; Admin Dose 650 MG; Start 11/21/16 at 20:00 Cyclosporine (Restasis) 1 drop Q12 BOTH EYES Last administered on 11/23/16 08: 18; Admin Dose 1 DROP; Start 11/21/16 at 21:00 Diclofenac Sodium (Voltaren 1% Gel) 1 gm BID PRN TP PAIN; Start 11/21/16 at 20: 00 Docusate Sodium (Colace) 100 mg BID PRN PO CONSTIPATION; Start 11/21/16 at 20: 00 Erythromycin (Erythromycin Oph Oint) 1 applic BID BOTH EYES Last administered on 11/23/16 08:18; Admin Dose 1 APPLIC; Start 11/21/16 at 21:00 Fludrocortisone Acetate (Florinef) 0.1 mg DAILY PO Last administered on 08:18; Admin Dose 0.1 MG; Start 11/22/16 at 09:00 Hyoscyamine (Levsin (Sl)) 0.125 mg Q8H PRN SL PAIN; Start 11/21/16 at 20:00 Metoprolol Tartrate (Lopressor) 12.5 mg BID PO Last administered on 11/23/16 08:19; Admin Dose 1 MG; Start 11/22/16 at 09:30 Enoxaparin Sodium (Lovenox) 30 mg BID SC ; Start 11/23/16 at 12:00 GREG LARSEN Nov 23, 2016 11:46
[2016-11-23] MEDS: ENOXAPARIN 30 MG/0.3 ML SYG SC SCH ×2 (12:36→21:00)
[2016-11-23 12:58] LABS: ADD SCAN DIFF NO
[2016-11-23 13:00] LABS: BASOPHILS % 0.4 % (0.0-2.0); EOSINOPHILS # 0.1 10^3/ul (0.0-0.5); EOSINOPHILS % 2.1 % (0.0-7.0); HEMATOCRIT 40.7 % (37.0-47.0); HEMOGLOBIN 12.9 g/dl (12.0-16.0); LYMPHOCYTES # 0.7 10^3/ul (0.8-2.9); LYMPHOCYTES % 14.1 % (15.0-51.0); MEAN CORPUSCULAR HEMOGLOBIN 32.9 pg (29.0-33.0); MEAN CORPUSCULAR HGB CONC 31.7 g/dl (32.0-37.0); MEAN CORPUSCULAR VOLUME 103.8 fl (82.0-101.0); MEAN PLATELET VOLUME 9.6 fl (7.4-10.4); MONOCYTE # 0.6 10^3/ul (0.3-0.9); NEUTROPHIL # 3.7 10^3/ul (1.6-7.5); NEUTROPHILS % 71.2 % (39.0-77.0); PLATELET COUNT 199 10^3/UL (140-415); RED BLOOD COUNT 3.92 10^6/ul (4.20-5.40); RED CELL DISTRIBUTION WIDTH 12.7 % (11.5-14.5); WHITE BLOOD COUNT 5.2 10^3/ul (4.8-10.8)
[2016-11-23 13:08] LABS: POTASSIUM 3.8 mmol/L (3.5-5.1)
[2016-11-23 13:11] LABS: CREATININE 0.8 mg/dl (0.44-1.00)
[2016-11-23 13:12] LABS: CALCIUM 10.2 mg/dl (8.4-10.2)
[2016-11-23 17:48] LABS: INR 1.01; PROTIME 13.3 Sec (12.2-14.2)
[2016-11-23 17:49] LABS: PARTIAL THROMBOPLASTIN TIME 30.6 Sec (25.0-35.0)
[2016-11-23 17:55] LABS: MAGNESIUM 1.9 mg/dl (1.7-2.5)
[2016-11-24] VITALS (8 sets, daily range): BP systolic 99–107; BP diastolic 55–59; PULSE 75–110; RESP 18–20
[2016-11-24] MEDS ORDERED: FUROSEMIDE 20 MG TAB PO SCH (06:00)
[2016-11-24] MEDS: PANTOPRAZOLE (EC) 40 MG TAB PO SCH (06:33)
[2016-11-24 07:18] LABS: ADD SCAN DIFF NO
[2016-11-24 07:33] LABS: POTASSIUM 3.5 mmol/L (3.5-5.1)
[2016-11-24 07:33] LABS: BASOPHILS % 0.7 % (0.0-2.0); EOSINOPHILS # 0.1 10^3/ul (0.0-0.5); EOSINOPHILS % 1.7 % (0.0-7.0); HEMATOCRIT 38.7 % (37.0-47.0); HEMOGLOBIN 12.5 g/dl (12.0-16.0); LYMPHOCYTES # 0.7 10^3/ul (0.8-2.9); LYMPHOCYTES % 12.5 % (15.0-51.0); MEAN CORPUSCULAR HGB CONC 32.3 g/dl (32.0-37.0); MEAN CORPUSCULAR VOLUME 102.1 fl (82.0-101.0); MONOCYTE # 0.7 10^3/ul (0.3-0.9); NEUTROPHIL # 4.3 10^3/ul (1.6-7.5); NEUTROPHILS % 72.9 % (39.0-77.0); PLATELET COUNT 188 10^3/UL (140-415); RED BLOOD COUNT 3.79 10^6/ul (4.20-5.40); RED CELL DISTRIBUTION WIDTH 12.2 % (11.5-14.5); WHITE BLOOD COUNT 5.9 10^3/ul (4.8-10.8)
[2016-11-24 07:36] LABS: CREATININE 0.72 mg/dl (0.44-1.00)
[2016-11-24] MEDS: ERYTHROMYCIN 1 GM OPH OINT BOTH EYES SCH (08:52)
[2016-11-24] MEDS: FLUDROCORTISONE 0.1 MG TAB PO SCH (08:53)
[2016-11-24] MEDS: CYCLOSPORINE 0.05% OPH DROPERETTE BOTH EYES SCH (08:53)
[2016-11-24] MEDS: METOPROLOL 25 MG TAB PO SCH (08:54)
[2016-11-24] MEDS: ENOXAPARIN 30 MG/0.3 ML SYG SC SCH (08:58)
[2016-11-24] MEDS ORDERED: CEFTRIAXONE 1 GM/50 ML (PMX) 50 ML IVPB ONE (09:30)
[2016-11-24] MEDS ORDERED: POTASSIUM CHLORIDE 20 MEQ POWDER FOR ORAL SOLN PO ONE (10:30)
[2016-11-24] MEDS ORDERED: MAGNESIUM SULFATE 2 GM/50 ML 50 ML IVPB ONE (10:30)
--- NOTE | 2016-11-24 11:16 | CONS ---
Date/Time of Note Date/Time of Note DATE: 11/24/16 TIME: 11:11 Assessment/Plan Assessment/Plan Chief Complaint/Hosp Course SOB: In my opinion her symptoms are unlikely from the PE as they are small and may even be chronic. 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 By echo she has at least moderate eccentric MR but the valve was not well visualized and is likely underestimated. She also has mod-severe AR. SVT: appears to be atrial tachycardia on monitor with some aberrant conduction. Some irregularity though but no clear e/o afib. Improved with MTP Acute decompensated diastolic/valvular heart failure: significant MR/AR. EF preserved. Close to euvolemic after diuresis Positive blood cultures: 1/2 with coag neg staph and second with alpha hemolytic strep. Likely contaminants. Repeat culture pending . ESR/CRP normal Pulmonary emboli: acute vs chronic. Small by CT COPD H/o DVT/IVC filter -ok for d/c -d/c with lasix 20mg PO daily, potassium supplement -metoprolol 12.5mg BID for SVT control -anticoagulation and antibiotics per primary team -repeat TTE in clinic this week with Dr. Yeung -check labs this week -f/u cultures Problems: Consultation Date/Type/Reason Admit Date/Time Nov 21, 2016 at 14:30 Initial Consult Date 11/21/16 Type of Consultation: Cardiology Referring Provider: MARLIN YEUNG MD 24 HR Interval Summary Free Text/Dictation No o/n events. Feels well. Would like to go home Exam/Review of Systems Vital Signs Vitals Vital Signs Date Time Temp Pulse Resp B/P Pulse Ox O2 Delivery O2 Flow Rate FiO2 11/24/16 09:01 80 11/24/16 07:40 98.2 18 107/55 94 11/24/16 07:27 2.0 11/24/16 06:15 Nasal Cannula Intake and Output 11/23/16 11/23/16 11/24/16 15:00 23:00 07:00 Intake Total 720 ml Balance 720 ml Exam Constitutional: alert, oriented Psych: no complaints Neck: jvd (7cm) Respiratory: No clear to auscultation (mild crackles ) Cardiovascular: regular rate and rhythm, No edema Gastrointestinal: non-tender, soft Extremities: normal pulses Results Result Diagram: 11/24/16 0630 11/24/16 0632 Results 24 hrs Laboratory Tests Test 11/23/16 12:49 11/23/16 17:15 11/24/16 06:30 11/24/16 06:32 White Blood Count 5.2 5.9 Red Blood Count 3.92 L 3.79 L Hemoglobin 12.9 12.5 Hematocrit 40.7 38.7 Mean Corpuscular Volume 103.8 H 102.1 H Mean Corpuscular Hemoglobin 32.9 33.0 Mean Corpuscular Hemoglobin Concent 31.7 L 32.3 Red Cell Distribution Width 12.7 12.2 Platelet Count 199 188 Mean Platelet Volume 9.6 10.0 Neutrophils % 71.2 72.9 Lymphocytes % 14.1 L 12.5 L Monocytes % 12.0 H 12.0 H Eosinophils % 2.1 1.7 Basophils % 0.4 0.7 Nucleated Red Blood Cells % 0.0 0.0 Neutrophils # 3.7 4.3 Lymphocytes # 0.7 L 0.7 L Monocytes # 0.6 0.7 Eosinophils # 0.1 0.1 Basophils # 0.0 0.0 Nucleated Red Blood Cells # 0.0 0.0 Erythrocyte Sedimentation Rate 8 Sodium Level 143 144 Potassium Level 3.8 3.5 Chloride Level 98 102 Carbon Dioxide Level 35 H 33 H Anion Gap 14 13 Blood Urea Nitrogen 27 H 27 H Creatinine 0.80 0.72 Glucose Level 117 100 Calcium Level 10.2 10.0 Magnesium Level 1.9 1.9 C-Reactive Protein < 0.5 Prothrombin Time 13.3 Prothrombin Time Ratio 1.0 INR International Normalized Ratio 1.01 Activated Partial Thromboplast Time 30.6 B-Type Natriuretic Peptide 525 H Medications Medications Current Medications Acetaminophen (Tylenol Tab) 650 mg Q8H PRN PO PAIN AND OR ELEVATED TEMP Last administered on 11/22/16 11:05; Admin Dose 650 MG; Start 11/21/16 at 20:00 Cyclosporine (Restasis) 1 drop Q12 BOTH EYES Last administered on 11/24/16 08: 53; Admin Dose 1 DROP; Start 11/21/16 at 21:00 Diclofenac Sodium (Voltaren 1% Gel) 1 gm BID PRN TP PAIN; Start 11/21/16 at 20: 00 Docusate Sodium (Colace) 100 mg BID PRN PO CONSTIPATION Last administered on 17:30; Admin Dose 100 MG; Start 11/21/16 at 20:00 Erythromycin (Erythromycin Oph Oint) 1 applic BID BOTH EYES Last administered on 11/24/16 08:52; Admin Dose 1 APPLIC; Start 11/21/16 at 21:00 Fludrocortisone Acetate (Florinef) 0.1 mg DAILY PO Last administered on 08:53; Admin Dose 0.1 MG; Start 11/22/16 at 09:00 Hyoscyamine (Levsin (Sl)) 0.125 mg Q8H PRN SL PAIN Last administered on 08:53; Admin Dose 0.125 MG; Start 11/21/16 at 20:00 Metoprolol Tartrate (Lopressor) 12.5 mg BID PO Last administered on 11/24/16 08:54; Admin Dose 12.5 MG; Start 11/22/16 at 09:30 Enoxaparin Sodium (Lovenox) 30 mg BID SC Last administered on 11/23/16 12:36; Admin Dose 30 MG; Start 11/23/16 at 12:00 Furosemide 20 mg 20 mg DAILY@06 PO ; Start 11/24/16 at 06:00 Magnesium Sulfate (Magnesium Sulfate 2 Gm/50 ml) 50 ml @ 25 mls/hr ONCE ONCE IVPB ; Start 11/24/16 at 10:30; Stop 11/24/16 at 12:29 GREG LARSEN Nov 24, 2016 11:16
--- NOTE | 2016-11-24 21:44 | RADRPT ---
PROCEDURE: XR Chest. CLINICAL INDICATION: Shortness of breath. TECHNIQUE: Single frontal view. COMPARISON: 03/21/2008. FINDINGS: There is air space disease in the right mid and lower lung zones laterally. The lungs are otherwise clear. The heart is enlarged. There is calcification in the aorta consistent with atherosclerosis. There is no pleural effusion. There is no pneumothorax. IMPRESSION: 1. Right mid and lower lung zone pneumonia. 2. Cardiomegaly and atherosclerosis. RPTAT: QQ .Charbel Fowler MD, MD Date Time Electronically viewed and signed by .Charbel Fowler MD, MD on 11/21/2016 12:04 .R/
== END 2016-11-24 16:47 | disposition home or self-care (01) | DRG 291 ==
LOC: E/R 11:15 → MS4 14:30
PROVIDERS: ADMIT Internal Medicine; ATTEND Internal Medicine
DX: I11.0 Hypertensive heart disease with heart failure (principal); I26.99 Other pulmonary embolism without acute cor pulmonale; I47.1 Supraventricular tachycardia; I50.33 Acute on chronic diastolic (congestive) heart failure; E11.9 Type 2 diabetes mellitus without complications; I27.2 Other secondary pulmonary hypertension; I08.0 Rheumatic disorders of both mitral and aortic valves; Z86.718 Personal history of other venous thrombosis and embolism
CPT/HCPCS: 36415; 71010; 71275; 80048; 80053; 81001; 81003; 82150; 82553; 83690; 83735; 83880; 84484; 85025; 85610; 85651; 85730; 86140; 87040; 87086; 93306; 93970; 94664; 96372; 96374; J1940; J0696; J1650; J3475; Q9967